=== PATIENT | male | born 1955 | race African-American/Black ===

== ENCOUNTER 2017-04-10 16:46 | Emergency (ER) | payer OTHER ==
[~2017-04-10] VITALS: Ht 172.7 cm; Wt 77.1 kg
[~2017-04-10 16:46] MED LIST: BLOOD PRESSURE
[2017-04-10] MEDS ORDERED: CARBAMIDE PEROXIDE 6.5% 15 ML OTIC SOLUTION AS ONE (17:30)
[2017-04-10 18:09] VITALS: BP 199/100
== END 2017-04-10 18:47 | disposition home or self-care (01) ==
LOC: EMS 16:51
DX: H61.22 Impacted cerumen, left ear (principal); I10 Essential (primary) hypertension; F17.210 Nicotine dependence, cigarettes, uncomplicated; Z91.19 Patient's noncompliance with other medical treatment and regimen
CPT/HCPCS: 69209; 99282

== ENCOUNTER 2018-11-12 11:30 | Emergency (ER) | payer OTHER ==
[~2018-11-12] VITALS: Ht 172.7 cm; Wt 72.7 kg
[2018-11-12] MEDS ORDERED: AMLO-512 PO (11:42)
[2018-11-12] MEDS ORDERED: BACL10TA PO (11:42)
[2018-11-12] MEDS ORDERED: CARV6 PO (11:42)
[2018-11-12] MEDS ORDERED: AmLODIPine BESYLATE 5 MG TABLET PO ONE (12:30)
[2018-11-12] MEDS ORDERED: HydrALAZINE HCL 20 MG/ML VIAL IVP ONE (13:00)
[2018-11-12] MEDS ORDERED: ACETAMINOPHEN 500 MG TABLET PO ONE (13:30)
[2018-11-12 13:33] LABS: APPEARANCE,URINE CLEAR (CLEAR); BILIRUBIN,URINE NEGATIVE (NEGATIVE); GLUCOSE, URINE (UA) NEGATIVE (NEGATIVE); KETONES,URINE NEGATIVE (NEGATIVE); LEUKOCYTE ESTERASE ,URINE NEGATIVE (NEGATIVE); NITRATE,URINE NEGATIVE (NEGATIVE); OCCULT BLOOD,URINE NEGATIVE (NEGATIVE); PROTEIN,URINE NEGATIVE (NEGATIVE); UROBILINOGEN,URINE 0.2 mg/dL (<=1.0)
[2018-11-12 13:38] LABS: AMPHET/METH SCREEN,URINE NEGATIVE (NEGATIVE); BARBITURATE SCREEN, URINE NEGATIVE (NEGATIVE); BENZODIAZEPINES SCREEN,URINE NEGATIVE (NEGATIVE); CANNABINOID SCREEN,URINE NEGATIVE (NEGATIVE); COCAINE SCREEN,URINE NEGATIVE (NEGATIVE); METHADONE SCREEN, URINE NEGATIVE (NEGATIVE); OPIATE SCREEN,URINE NEGATIVE (NEGATIVE)
[2018-11-12 13:39] LABS: PHENCYCLIDINE SCREEN,URINE NEGATIVE (NEGATIVE)
[2018-11-12 13:53] LABS: BASOPHILS % (AUTO) 0.4 % (0.0-2.0); EOSINOPHILS % (AUTO) 1.7 % (1.0-6.0); HEMATOCRIT 41.8 % (41-53); HEMOGLOBIN 14.2 g/dL (13.5-17.5); LYMPHOCYTES # (AUTO) 1.1 K/uL (1.0-4.8); LYMPHOCYTES % (AUTO) 20.6 % (22.0-44.0); MEAN CORPUSCULAR HEMOGLOBIN 32.9 pg (26.0-34.0); MEAN CORPUSCULAR HGB CONC 33.9 G/dL (31.0-37.0); MEAN CORPUSCULAR VOLUME 97 fL (80-100); MONOCYTES # (AUTO) 0.4 K/uL (0.1-1.0); MONOCYTES % (AUTO) 8.5 % (2.0-9.0); NEUTROPHILS # (AUTO) 3.6 K/uL (1.8-7.7); NEUTROPHILS % (AUTO) 68.8 % (40.0-70.0); PLATELET COUNT (AUTO) 230 K/uL (150-450); RED BLOOD CELL COUNT(AUTO) 4.31 MIL/uL (4.50-5.90); RED CELL DISTRIBUTION WIDTH 12.2 % (11.5-14.5)
[2018-11-12 14:02] LABS: ANION GAP 6 mmol/L (8-16); CALCIUM, TOTAL 9.2 mg/dL (8.8-10.5); CARBON DIOXIDE 30 mmol/L (22-29); CHLORIDE 107 mmol/L (98-107); CREATININE 1.02 mg/dL (0.60-1.30); GLOMERULAR FILTR. RATE CALC > 60 mL/min (>60); GLUCOSE,RANDOM 87 mg/dL (70-110); POTASSIUM 4.3 mmol/L (3.5-5.1); SODIUM SERUM 143 mmol/L (136-145); UREA NITROGEN, BLOOD 10 mg/dL (7-18)
[2018-11-12 14:08] LABS: ALANINE AMINOTRANSFERASE 27 U/L (12-78); ALBUMIN 3.6 g/dL (3.4-5.0); ALKALINE PHOSPHATASE 85 U/L (46-116); ASPARTATE AMINOTRANSFERASE 19 U/L (15-37); BILIRUBIN,TOTAL 0.7 mg/dL (0.1-1.0); TOTAL PROTEIN, SERUM 7.5 g/dL (6.4-8.2)
[2018-11-12] MEDS ORDERED: CloNIDine HCL 0.1 MG TABLET PO ONE (15:30)
[2018-11-12 16:44] VITALS: BP 150/86
== END 2018-11-12 16:48 | disposition home or self-care (01) ==
LOC: EMS 11:31
DX: I10 Essential (primary) hypertension (principal); R51 Headache; F17.210 Nicotine dependence, cigarettes, uncomplicated; Z79.899 Other long term (current) drug therapy
CPT/HCPCS: 36415; 70450; 80053; 80307; 81003; 84484; 85025; 93005; 96374; 99285; J0360

== ENCOUNTER 2018-12-18 04:31 | Emergency (ER) | payer OTHER ==
[~2018-12-18] VITALS: Ht 172.7 cm; Wt 72.7 kg
[~2018-12-18 04:31] MED LIST changes: +AMLO-512 PO; -BLOOD PRESSURE; +CARV6 PO
[2018-12-18 05:38] VITALS: BP 158/94
[2018-12-18] MEDS ORDERED: MAGNESIUM CITRATE 300 ML ORAL SOLUTION PO ONE (06:00)
== END 2018-12-18 06:10 | disposition home or self-care (01) ==
LOC: EMS 04:31
DX: R10.32 Left lower quadrant pain (principal); F17.210 Nicotine dependence, cigarettes, uncomplicated; I10 Essential (primary) hypertension; Z88.8 Allergy status to other drugs, medicaments and biological substances
CPT/HCPCS: 99406

== ENCOUNTER 2019-04-08 15:31 | Emergency (ER) | payer OTHER ==
[~2019-04-08] VITALS: Ht 172.7 cm; Wt 72.7 kg
[~2019-04-08 15:31] MED LIST changes: -AMLO-512 PO; +AMLO10TA7 PO
[2019-04-08] MEDS ORDERED: ACETAMINOPHEN 500 MG TABLET PO ONE (16:15)
[2019-04-08 18:17] VITALS: BP 156/90
== END 2019-04-08 18:19 | disposition home or self-care (01) ==
LOC: EMS 15:32
DX: M16.12 Unilateral primary osteoarthritis, left hip (principal); F17.210 Nicotine dependence, cigarettes, uncomplicated; I10 Essential (primary) hypertension; Z88.8 Allergy status to other drugs, medicaments and biological substances
CPT/HCPCS: 73503; 99406

== ENCOUNTER 2021-05-15 17:12 | Emergency (ER) | payer OTHER ==
[~2021-05-15] VITALS: Ht 172.7 cm; Wt 72.7 kg
[~2021-05-15 17:12] MED LIST changes: +AMLO-258 PO; -AMLO10TA7 PO
[2021-05-15 18:22] LABS: BASOPHILS % (AUTO) 0.4 % (0.0-2.0); EOSINOPHILS % (AUTO) 1.4 % (1.0-6.0); HEMOGLOBIN 12.6 g/dL (13.5-17.5); LYMPHOCYTES # (AUTO) 1.6 K/uL (1.0-4.8); LYMPHOCYTES % (AUTO) 29.9 % (22.0-44.0); MEAN CORPUSCULAR HEMOGLOBIN 33.8 pg (26.0-34.0); MEAN CORPUSCULAR HGB CONC 33.3 G/dL (31.0-37.0); MEAN CORPUSCULAR VOLUME 102 fL (80-100); MONOCYTES # (AUTO) 0.4 K/uL (0.1-1.0); MONOCYTES % (AUTO) 7.8 % (2.0-9.0); NEUTROPHILS # (AUTO) 3.2 K/uL (1.8-7.7); NEUTROPHILS % (AUTO) 60.5 % (40.0-70.0); PLATELET COUNT (AUTO) 198 K/uL (150-450); RED BLOOD CELL COUNT(AUTO) 3.73 MIL/uL (4.50-5.90); RED CELL DISTRIBUTION WIDTH 12.7 % (11.5-14.5)
[2021-05-15 18:29] LABS: ANION GAP 6 mmol/L (8-16); CALCIUM, TOTAL 8.8 mg/dL (8.8-10.5); CARBON DIOXIDE 27 mmol/L (22-29); CHLORIDE 106 mmol/L (98-107); CREATININE 1.08 mg/dL (0.60-1.30); GLOMERULAR FILTR. RATE CALC > 60 mL/min (>60); GLUCOSE,RANDOM 68 mg/dL (70-110); POTASSIUM 3.6 mmol/L (3.5-5.1); SODIUM SERUM 139 mmol/L (136-145); UREA NITROGEN, BLOOD 11 mg/dL (7-18)
[2021-05-15 18:35] LABS: ALANINE AMINOTRANSFERASE 40 U/L (12-78); ALBUMIN 3.8 g/dL (3.4-5.0); ALKALINE PHOSPHATASE 79 U/L (46-116); ASPARTATE AMINOTRANSFERASE 28 U/L (15-37); BILIRUBIN,TOTAL 0.4 mg/dL (0.1-1.0); TOTAL PROTEIN, SERUM 7.5 g/dL (6.4-8.2)
[2021-05-15 19:16] VITALS: BP 157/90
== END 2021-05-15 19:23 | disposition home or self-care (01) ==
LOC: EMS 17:13
DX: D64.9 Anemia, unspecified (principal); I10 Essential (primary) hypertension; F17.210 Nicotine dependence, cigarettes, uncomplicated
CPT/HCPCS: 80053; 84484; 85025; 99283

== ENCOUNTER 2021-06-01 09:07 | Emergency (ER) | payer OTHER ==
[~2021-06-01] VITALS: Ht 170.2 cm; Wt 78.0 kg
[2021-06-01 09:09] VITALS: BP 143/81
[2021-06-01 09:44] LABS: APPEARANCE,URINE CLEAR (CLEAR); BILIRUBIN,URINE NEGATIVE (NEGATIVE); GLUCOSE, URINE (UA) NEGATIVE (NEGATIVE); KETONES,URINE NEGATIVE (NEGATIVE); LEUKOCYTE ESTERASE ,URINE TRACE (NEGATIVE); NITRATE,URINE NEGATIVE (NEGATIVE); OCCULT BLOOD,URINE TRACE (NEGATIVE); PH,URINE 6.5 (5.0-8.0); PROTEIN,URINE NEGATIVE (NEGATIVE); UROBILINOGEN,URINE 0.2 mg/dL (<=1.0)
[2021-06-01 11:07] LABS: RBC,URINE 0-2 /HPF (0-2)
[2021-06-01 11:08] LABS: BACTERIA,URINE Rare /HPF (None Seen)
[2021-06-01] MEDS ORDERED: CEPHALEXIN MONOHYDRATE 500 MG CAPSULE PO ONE (11:15)
== END 2021-06-01 11:35 | disposition home or self-care (01) ==
LOC: EMS 09:07
DX: N39.0 Urinary tract infection, site not specified (principal); I10 Essential (primary) hypertension; F17.210 Nicotine dependence, cigarettes, uncomplicated; Z88.8 Allergy status to other drugs, medicaments and biological substances; Z79.899 Other long term (current) drug therapy
CPT/HCPCS: 81001; 87086; 99283

== ENCOUNTER 2023-03-13 07:49 | Emergency (ER) | payer MEDICARE, OTHER ==
[~2023-03-13] VITALS: Ht 172.7 cm; Wt 75.0 kg
[2023-03-13 07:53] VITALS: TEMP 98.2
[2023-03-13] MEDS ORDERED: DOXYCYCLINE HYCLATE 100 MG TABLET PO ONE (08:45)
[2023-03-13] MEDS ORDERED: IBUPROFEN 600 MG TABLET PO ONE (08:45)
[2023-03-13] MEDS ORDERED: IBUP-1492 PO (08:55)
[2023-03-13] MEDS ORDERED: DOXY-354 PO (08:55)
[2023-03-13] MEDS ORDERED: ACET-3385 PO (08:55)
[2023-03-13 09:11] VITALS: BP 155/84; PULSE 78; RESP 16
== END 2023-03-13 09:16 | disposition home or self-care (01) ==
LOC: EMS 07:58
DX: G56.02 Carpal tunnel syndrome, left upper limb (principal); I10 Essential (primary) hypertension; F17.210 Nicotine dependence, cigarettes, uncomplicated; Z88.8 Allergy status to other drugs, medicaments and biological substances
CPT/HCPCS: 99283

== ENCOUNTER 2023-06-14 10:14 | Emergency (ER) | payer MEDICARE, OTHER ==
[~2023-06-14] VITALS: Ht 172.7 cm; Wt 81.8 kg
[~2023-06-14 10:14] MED LIST changes: +ACET-3385 PO; +DOXY-354 PO; +IBUP-1492 PO
[2023-06-14] MEDS ORDERED: CARV6.2534 PO (10:18)
[2023-06-14] MEDS ORDERED: AMLO10TA55 PO (10:18)
[2023-06-14] MEDS ORDERED: ATOR40TA71 PO (10:18)
[2023-06-14 10:25] VITALS: TEMP 98.5
[2023-06-14] MEDS ORDERED: HYDROCODONE/ACETAMINOPHEN 5-325 MG TABLET PO ONE (11:45)
[2023-06-14] MEDS ORDERED: KETOROLAC TROMETHAMINE 60 MG/2 ML VIAL IM ONE (11:45)
[2023-06-14] MEDS ORDERED: METHOCARBAMOL 500 MG TABLET PO ONE (11:45)
[2023-06-14 13:25] VITALS: BP 148/80; PULSE 66; RESP 16
[2023-06-14] MEDS ORDERED: IBUP-1554 PO (13:43)
[2023-06-14] MEDS ORDERED: ACET-66 PO (13:43)
[2023-06-14] MEDS ORDERED: METH-812 PO (13:43)
== END 2023-06-14 16:02 | disposition home or self-care (01) ==
LOC: EMS 10:19
DX: M16.12 Unilateral primary osteoarthritis, left hip (principal); M25.552 Pain in left hip; M54.50 Low back pain, unspecified; I10 Essential (primary) hypertension; F17.210 Nicotine dependence, cigarettes, uncomplicated; Z88.8 Allergy status to other drugs, medicaments and biological substances
CPT/HCPCS: 99284; 72100; 73503; 96372; J1885

== ENCOUNTER 2024-10-27 22:47 | Emergency (ER) | payer MEDICARE, OTHER ==
[~2024-10-27] VITALS: Ht 170.2 cm; Wt 75.0 kg
[~2024-10-27 22:47] MED LIST changes: -ACET-3385 PO; +ACET-66 PO; -AMLO-258 PO; +AMLO10TA55 PO; +ATOR40TA71 PO; -CARV6 PO; +CARV6.2534 PO; -DOXY-354 PO; -IBUP-1492 PO; +IBUP-1554 PO; +METH-812 PO
[2024-10-27 23:29] LABS: BASOPHILS % (AUTO) 0.3 % (0.0-2.0); EOSINOPHILS % (AUTO) 2.6 % (1.0-6.0); HEMATOCRIT 40.3 % (41-53); HEMOGLOBIN 13.6 g/dL (13.5-17.5); LYMPHOCYTES # (AUTO) 1.3 K/uL (1.0-4.8); LYMPHOCYTES % (AUTO) 29.7 % (22.0-44.0); MEAN CORPUSCULAR HEMOGLOBIN 33.5 pg (26.0-34.0); MEAN CORPUSCULAR HGB CONC 33.7 G/dL (31.0-37.0); MEAN CORPUSCULAR VOLUME 100 fL (80-100); MONOCYTES # (AUTO) 0.3 K/uL (0.1-1.0); MONOCYTES % (AUTO) 7.8 % (2.0-9.0); NEUTROPHILS # (AUTO) 2.7 K/uL (1.8-7.7); NEUTROPHILS % (AUTO) 59.6 % (40.0-70.0); PLATELET COUNT (AUTO) 256 K/uL (150-450); RED BLOOD CELL COUNT(AUTO) 4.04 MIL/uL (4.50-5.90); RED CELL DISTRIBUTION WIDTH 12.6 % (11.5-14.5); WHITE BLOOD COUNT (AUTO) 4.5 K/uL (4.5-11.0)
[2024-10-27 23:38] LABS: ANION GAP 9 mmol/L (8-16); CALCIUM, TOTAL 8.6 mg/dL (8.8-10.5); CARBON DIOXIDE 29 mmol/L (22-29); CHLORIDE 105 mmol/L (98-107); GLOMERULAR FILTR. RATE CALC > 60 mL/min (>60); GLUCOSE,RANDOM 105 mg/dL (70-110); POTASSIUM 3.5 mmol/L (3.5-5.1); SODIUM SERUM 143 mmol/L (136-145); UREA NITROGEN, BLOOD 16 mg/dL (7-18)
[2024-10-27 23:48] LABS: TROPONIN I-HIGH SENSITIVITY 60 ng/L (<76)
[2024-10-28 01:53] LABS: TROPONIN I-HIGH SENSITIVITY 56 ng/L (<76)
[2024-10-28 02:54] VITALS: BP 135/84; PULSE 79; RESP 16; TEMP 97.3; O2SAT 100
== END 2024-10-28 02:58 | disposition home or self-care (01) ==
LOC: EMS 22:47
DX: S09.90XA Unspecified injury of head, initial encounter (principal); F10.129 Alcohol abuse with intoxication, unspecified; I10 Essential (primary) hypertension; F17.210 Nicotine dependence, cigarettes, uncomplicated; Z79.899 Other long term (current) drug therapy; Z88.8 Allergy status to other drugs, medicaments and biological substances; W19.XXXA Unspecified fall, initial encounter; Y93.01 Activity, walking, marching and hiking; Y92.89 Other specified places as the place of occurrence of the external cause; Y99.8 Other external cause status
CPT/HCPCS: 99284; 80048; 84484; 85025; 93005; 70450; 82962; 36415; G0480